=== PATIENT | male | born 1950 | race Caucasian/White ===

== ENCOUNTER 2020-10-19 11:13 | Emergency (ER) | payer MEDICARE ==
[~2020-10-19] VITALS: Ht 160 cm; Wt 81.8 kg
[2020-10-19 11:17] VITALS: BP 133/55
== END 2020-10-19 13:49 | disposition home or self-care (01) ==
LOC: EMS 11:20
DX: U07.1 COVID-19 (principal)
CPT/HCPCS: 99283; U0003